=== PATIENT | female | born 1965 | race Caucasian/White ===

== ENCOUNTER 2016-11-17 13:00 | Inpatient (IN) | payer OTHER ==
--- NOTE | ~2016-11-17 | PA ---
Unit #: [id number] #: [id number] Patient: AUSTIN HOU [id number] [place] [address] [id number] MR#: [id number] NAME: AUSTIN HOU ROOM: P202 Age: 50 Sex: F Admission Date: 11/17/2016 : 1965 Date of Assessment: Attending Physician: Hemal Martin M.D. Admitting Physician: Hemal Martin M.D. PSYCHIATRIC ASSESSMENT INFORMANTS The patient's reliability, fair; chart reliability, good. CHIEF COMPLAINT Suicidal ideation. HISTORY OF PRESENT ILLNESS Ms. Cervantes is a 50-year-old female, admitted with polysubstance abuse, mood disorder. The patient has a history of multiple substance abuse. The patient has a long history of pain medication abuse, brought by due to inability to arouse her. The patient has a long history of abusing pain medication and other medication, increased in recent weeks. The patient was treated medically and subsequently transferred to [facility] for psychiatric stabilization. The patient's reported that he woke up this morning to find the patient standing in the bathroom in a stupor while the room flooded from the open running water. The patient was covered in feces which also been scattered around the entire wall, home. The patient's reported pills were scattered all over, . The patient's was concerned about the patient's behavior. reported no known history of any suicide attempt. The patient needed inpatient admission at this time for psychiatric stabilization. PAST PSYCHIATRIC HISTORY Unremarkable for any history of any previous treatment, but history of substance abuse as mentioned above. FAMILY HISTORY AND SOCIAL HISTORY The patient has a good support system. No history of any abuse. Family history unknown at this time. MEDICAL HISTORY Remarkable for history of hypothyroidism; history of kidney stone; history of interstitial cystitis; history of polysubstance abuse including Ambien, benzodiazepine, opiates; history of gastric bypass surgery; arthroscopic left knee surgery; bilateral inguinal hernia repair; left nephrectomy. MEDICATION HISTORY The patient is on Prozac 40 mg daily, Estrace, Protonix, Synthroid, Lamictal. ALLERGIES No known drug allergies. Unit #: [id number] #: [id number] Patient: AUSTIN HOU SUBSTANCE ABUSE HISTORY History of benzodiazepine abuse and pain medication abuse. REVIEW OF SYSTEMS HEENT: Eyes, clear. Ears, nose, mouth, and throat; clear. CARDIOVASCULAR: Unremarkable. RESPIRATORY: Unremarkable. GI: Unremarkable. : Unremarkable. SKIN: Unremarkable. LYMPH NODE: Unremarkable. NEUROLOGIC: Unremarkable. ENDOCRINE: Unremarkable. HEMATOLOGIC: Unremarkable. ALLERGIC/IMMUNOLOGIC: Unremarkable. MUSCULOSKELETAL: Muscle strength and tone, no atrophy or abnormal movement. Gait normal. MENTAL STATUS EXAMINATION CONSTITUTIONAL: Measurement of vital signs; temperature 98.8, pulse 93, respiratory rate 15, blood pressure 134/81. Height 5 feet 5 inches, weight 150 pounds. GENERAL APPEARANCE: The patient dressed casually. The patient did not show any facial deformity. MUSCULOSKELETAL: Please see above. PSYCHIATRIC EXAMINATION Description of speech; regular rate, normal volume, normal articulation, coherent. Description of thought process, goal directed. Description of association, intact. Description of abnormal psychotic thinking; the patient denied any hallucination, delusions, substance abuse, mood lability. Description of the patient's judgment; concerning everyday activity, poor. Social situation, poor. Concerning psychiatric condition, poor. Complete mental status examination; oriented in time, place, and person. Recent and remote memory, fair. Attention span and concentration, fair. Language, able to name object and repeat phrases. Fund of knowledge, aware of current event and passive vocabulary intact. Mood and affect, sad and dysphoric. Insight and judgment, fair to poor. ASSETS AND LIABILITIES Assets; the patient is articulate, able to take care of her ADL. Liability, history of substance abuse and depression. ADMITTING DIAGNOSES Psychiatric: Opiate use disorder, severe, F11.20; sedative hypnotic use disorder, severe, F13.20; major depressive disorder, recurrent, severe, F33.2. Secondary diagnosis: Deferred. Medical diagnosis: Please refer to H and P. Stressors: Psychosocial stressors. PSYCHIATRIC PLAN Unit #: [id number] #: [id number] Patient: AUSTIN HOU 1. Advised to admit the patient on the inpatient unit. Provide safe, supportive, and structured environment. 2. Ordered labs; CBC, CMP, UA, and UDS. 3. Precaution for aggression and self-harm. 4. The patient to continue only with Prozac, Estrace, Protonix, Synthroid, and Lamictal. Advised to stop all other medication, detox protocol and detox monitoring. The patient to attend all the programing on the inpatient unit, group therapy, individual therapy, and family session. TREATMENT GOAL To attain euthymic mood, gain insight into her problem, and learn coping skills. DISCHARGE PLAN Plan to stabilize the patient and consider followup in outpatient program. ESTIMATED LENGTH OF STAY 5 days. Dictated by... Carlos Manuel Sheffield/consuelo TD: 11/19/2016 23:23 JOB #: [id number] PSYCHIATRIC ASSESSMENT Page 1 of 1 X Hemal Martin MD X PSYCHIATRIC ASSESSMENT
--- NOTE | ~2016-11-17 | HP ---
Unit #: [id number] #: [id number] Patient: HELEN HOU [id number] [place] [address] [id number] MR#: [id number] NAME: HELEN HOU ROOM: P202 Age: 50 Sex: F Admission Date: 11/17/2016 : 1965 Attending Physician: Hemal Martin M.D. Admitting Physician: Hemal Martin M.D. Primary Care Physician: Primary Care Physician No HISTORY AND PHYSICAL HISTORY OF PRESENT ILLNESS Helen is a 50 year old admitted to [address] [place] [address] because of her polysubstance abuse which includes Ambien, benzodiazepines and opioids. 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 PAST MEDICAL HISTORY 1. Hypothyroidism. 2. History of kidney stones. 3. History of interstitial cystitis. 4. History of polysubstance abuse to include Ambien, benzodiazepines and opioids. PAST SURGICAL HISTORY 1. Gastric bypass. 2. Arthroscopic left knee. 3. Bilateral inguinal hernia repairs. 4. Left nephrectomy (per patient's report). ALLERGIES Compazine, Toradol, Reglan. SOCIAL HISTORY She denies cigarettes and alcohol. Denies abusing her prescribed medication. REVIEW OF SYSTEMS CONSTITUTIONAL: No fever or chills. HEENT: Denies any sore throat, ear pain or runny nose. CARDIOVASCULAR: Denies chest pain, irregular heart rhythm or palpitations. CHEST: Denies shortness of breath or cough. No hemoptysis. GASTROINTESTINAL: Denies nausea, vomiting, diarrhea or chronic constipation. ENDOCRINE: Denies history of increased thirst or urination. No recent significant weight loss or gain. GENITOURINARY: Denies dysuria, frequency, or hematuria. SKIN: Denies any rashes. HEMATOLOGIC: Denies history of increased bleeding or bruising. MUSCULOSKELETAL: Denies any hot, swollen joints. No generalized muscle pain. NEUROLOGIC: Denies problems with vision or speech. No frequent, severe headaches. No numbness, tingling or weakness in any extremities. Denies loss of bladder or bowel control. Unit #: [id number] #: [id number] Patient: HELEN HOU CURRENT MEDICATIONS 1. Detox protocol. 2. Nicotine patch 14 mg daily. 3. Prozac 40 mg daily. 4. Estrace 1 mg daily. 5. Protonix 40 mg daily. 6. Synthroid 0.2 mg daily. 7. Lamictal 100 mg t.i.d. PHYSICAL EXAMINATION GENERAL: Alert, well-nourished, in no apparent distress. VITAL SIGNS: Blood pressure 133/80, heart rate 90, respirations 16, temperature 98.6. WEIGHT: 150. HEIGHT: 5 feet 5 inches. SKIN: Warm and dry without rash or lesion. HEENT: Normocephalic. TMs not viewed. Oral and nasal passages clear. Conjunctivae clear. PERRLA. EOMs intact. NECK: Supple without lymphadenopathy or thyromegaly. HEART: Regular rate and rhythm without murmur. LUNGS: Clear. ABDOMEN: Soft, nontender. : Not done. EXTREMITIES: No evidence of cyanosis, clubbing or edema. Moves all without focal deficit. NEUROLOGICAL: Grossly within normal limits. Cranial Nerves: II: Visual herrera are intact. III, IV AND : Extraocular movements are intact. Pupils are equal, round and reactive to light. V: Facial sensation is grossly normal. VII: Facial movements and expression are normal. VIII: Auditory acuity grossly intact. IX, X: Uvula is midline. Phonation is normal. XI: Patient shrugs shoulders and turns head normally. XII: Tongue protrudes in the midline. Sensory and Motor Function: Sensory and motor sensation is grossly normal. Motor: moves all extremities well. Coordination: Gait is normal. Deep Tendon Reflexes: Intact. IMPRESSION Psychiatric admission. RECOMMENDATIONS PSYCHIATRIC: Per psychiatrist. MEDICAL: See no contraindications to participate in facility's activities. MEDICAL PROGNOSIS Good. MEDICAL CONDITION Stable. Dictated by... Rochelle Tse P.A.-C. for Carlos Manuel Lopez/[facility] Unit #: [id number] #: [id number] Patient: HELEN HOU TD: 11/18/2016 18:19 JOB #: [id number] HISTORY AND PHYSICAL Page 1 of 1 X Rochelle Tse HISTORY AND PHYSICAL
--- NOTE | ~2016-11-17 | CO ---
Unit #: [id number] #: [id number] Patient: AUSTIN HOU [id number] [place] [address] [id number] I MR#: [id number] NAME: AUSTIN HOU ROOM: P202 Age: 50 Sex: F Admission Date: 11/17/2016 : 1965 Attending Physician: Hemal Martin M.D. Primary Care Physician: Primary Care Physician No Consultation Date: 11/19/2016 CONSULTATION REPORT ORDERING PROVIDER Dr. Martin. REASON FOR CONSULTATION Management of pain. SUBJECTIVE The patient reports that she has left knee pain. She has been seeing Orthopedics and recently had surgery for torn meniscus approximately 1 month ago. She reports that she was using [place] at home to manage her pain, however, she is admitted for drugs and drug seeking behavior. She has been taking ibuprofen without relief. Her only allergy is to Reglan. OBJECTIVE The patient has full range of motion of her knee. There is no swelling or ecchymosis. There is tenderness to palpation at the base of the patella. ASSESSMENT Left knee pain. PLAN Plan is to change ibuprofen to Aleve. No narcotics at this time. Dictated by... Sophy Diaz A.P.R.N. for Carlos Manuel Lopez/consuelo TD: 11/20/2016 23:47 JOB #: [id number] CONSULTATION REPORT Page 1 of 1 X SOPHY DIAZ APRN X CONSULTATION REPORT
--- NOTE | ~2016-11-17 | PN ---
Unit #: [id number] #: [id number] Patient: AUSTIN HOU [id number] [facility] [address] [place] [address] [id number] I MR#: [id number] NAME: AUSTIN HOU ROOM: P202 Age: 50 Sex: F Admission Date: 11/17/2016 : 1965 Attending Physician: Hemal Martin M.D. Admitting Physician: Hemal Martin M.D. Primary Care Physician: Primary Care Physician Krystle VILLAREAL PROGRESS NOTES DATE 11/19/2016 DISCUSSION Ms. Cervantes is a 50-year-old female, seen on 11/19/2016. The patient is reporting pain. the patient reports that she has a bladder problem with history of knee surgery. Mood sad and dysphoric, flat affect, guarded. The patient was able to maintain safe behavior, denied any thoughts of harming self or others, able to eat her breakfast. Vital signs, 134/76, heart rate 96. REVIEW OF SYSTEMS Complete review of systems unremarkable. MENTAL STATUS EXAMINATION General appearance: Patient dressed casually. Attention span and concentration, fair. Oriented to place and person. Mood and affect, sad and dysphoric, flat. Speech, monotone. Thought process, concrete. The patient denied any thoughts of harming self or others. Recent and remote memory, poor. Insight and judgment, poor. DIAGNOSIS Polysubstance abuse, mood disorder, NOS. ASSESSMENT/PLAN Advised to continue with the current medication and therapeutic protocol, and if needed consider further adjustment of medication. Dictated by... Carlos Manuel Sheffield/breann TD: 11/21/2016 12:29 JOB #: [id number] Unit #: [id number] #: [id number] Patient: AUSTIN HOU CHARLYNOEL PROGRESS NOTES Page 1 of 1 X Hemal Martin MD PROGRESS NOTE
--- NOTE | ~2016-11-17 | PN ---
Unit #: [id number] #: [id number] Patient: AUSTIN HOU [id number] [facility] [address] [place] [address] [id number] I MR#: [id number] NAME: AUSTIN HOU ROOM: P202 Age: 50 Sex: F Admission Date: 11/17/2016 : 1965 Attending Physician: Hemal Martin M.D. Admitting Physician: Hemal Martin M.D. Primary Care Physician: Primary Care Physician Krystle DE PAZ NOTES DATE 11/20/2016 DISCUSSION Ms. Cervantes is a 50-year-old female, seen on 11/20/2016. The patient interviewed, chart reviewed, and obtained information from the nursing staff. The patient was compliant and cooperative. Mood sad and dysphoric, but able to maintain safe behavior, denied any thoughts of harming self or others, compliant with medication, no side effects from medication. REVIEW OF SYSTEMS Complete review of systems unremarkable. MENTAL STATUS EXAMINATION General appearance: Patient dressed casually. Attention span and concentration, fair. Oriented in place and person. Mood and affect, sad and dysphoric. Speech, monotone. Thought process, concrete. The patient denied any thoughts of harming self or others. Recent and remote memory, poor. Insight and judgment, poor. DIAGNOSIS Mood disorder, NOS. ASSESSMENT/PLAN Advised to continue with the current medication and therapeutic protocol, and if needed consider further adjustment of medication. Dictated by... Carlos Manuel Sheffield/breann TD: 11/22/2016 08:24 JOB #: [id number] Unit #: [id number] #: [id number] Patient: AUSTIN HOU DIONNA PROGRESS NOTES Page 1 of 1 X Hemal Martin MD PROGRESS NOTE
--- NOTE | ~2016-11-17 | PN ---
Unit #: [id number] #: [id number] Patient: AUSTIN HOU [id number] [facility] [address] [place] [address] [id number] I MR#: [id number] NAME: AUSTIN HOU ROOM: P202 Age: 50 Sex: F Admission Date: 11/17/2016 : 1965 Attending Physician: Hemal Martin M.D. Admitting Physician: Hemal Martin M.D. Primary Care Physician: Primary Care Physician Krystle VILLAREAL PROGRESS NOTES DATE 11/18/2016 DISCUSSION Ms. Cervantes is a 50-year-old female seen on 11/18/2016. The patient interviewed, chart reviewed. Obtained information from nursing staff. The patient compliant and cooperative. Mood sad, dysphoric, flat affect, withdrawn, isolative, guarded. The patient did not show any aggressive behavior. Complete review of systems unremarkable. MENTAL STATUS EXAMINATION General appearance, the patient dressed casually. Attention span and concentration fair. Oriented to place and person. Mood and affect sad, depressed. Speech monotone. Thought process concrete. The patient denied any thoughts of harming self or others. Recent and remote memory poor. Insight and judgement poor. DIAGNOSES Benzodiazepine abuse, opioid abuse moderate, mood disorder NOS. ASSESSMENT/PLAN Advise to continue with current medication and therapeutic protocol. If needed consider further adjustment of medication. Dictated by... Carlos Manuel Sheffield/nydia TD: 11/21/2016 05:48 JOB #: [id number] Unit #: [id number] #: [id number] Patient: AUSTIN HOU CHARLYNOEL PROGRESS NOTES Page 1 of 1 X Hemal Martin MD PROGRESS NOTE
--- NOTE | ~2016-11-17 | DS ---
Unit #: [id number] #: [id number] Patient: AUSTIN HOU [id number] [facility] [address] [place] [address] [id number] I MR#: [id number] NAME: AUSTIN HOU ROOM: [facility] Age: 50 Sex: F Admission Date: 11/17/2016 : 1965 Discharge Date: 11/21/2016 Attending Physician: Hemal Martin M.D. Primary Care Physician: Primary Care Physician No DISCHARGE SUMMARY REASON FOR ADMISSION Suicidal ideation. DIAGNOSTIC STUDIES LABORATORY RESULTS: None. HOSPITAL COURSE The patient was admitted to inpatient unit on 11/17/2016 and discharged on 11/21/2016. The patient was treated on the inpatient unit with expressive therapy, medication management, psychoeducation, and structured milieu. The patient responded well with the above modalities of treatment. Subsequently, the patient was discharged with a plan to follow up in outpatient program. DISCHARGE MEDICATIONS None. DISCHARGE DIAGNOSES Psychiatric: Opioid use disorder, severe, F11.20; sedative hypnotic use disorder, severe, F13.20; mood disorder, not otherwise specified, F32.9. Secondary diagnosis: Deferred. Medical diagnosis: Please refer to H and P. Stressors: Psychosocial stressor. DISCHARGE INSTRUCTIONS The patient to follow up in outpatient clinic as per community mental health social worker. CONDITION ON DISCHARGE The patient was pleasant and cooperative. Denied any psychotic symptom or any suicidal ideation. PROGNOSIS Guarded. DIET AND ACTIVITY As tolerated. Dictated by... Hemal Martin M.D. Unit #: [id number] #: [id number] Patient: AUSTIN HOU ZORAC/modl TD: 11/22/2016 05:21 JOB #: [id number] DISCHARGE SUMMARY Page 1 of 1 X Hemal Martin MD X DISCHARGE SUMMARY
[2016-11-19 11:22] LABS: URINE APPEARANCE CLOUDY; URINE BILIRUBIN NEG (NEG); URINE BLOOD TRACE (NEG); URINE COLOR YELLOW; URINE GLUCOSE NEG (NEG); URINE KETONE NEG (NEG); URINE LEUKOCYTE ESTERASE 2+ (NEG); URINE NITRATE NEG (NEG); URINE PH 5.5 (5-8); URINE PROTEIN NEG (NEG); URINE SPECIFIC GRAVITY 1.019 (1.003-1.035); URINE UROBILINOGEN 0.2 MG/DL (NEG)
[2016-11-19 11:25] LABS: URINE BACTERIA AUWI 1+ (NEGATIVE); URINE SQUAMOUS EPITHELIAL CELL MOD /[HPF]; UWBCS1 AUWI 100-200 (0-5)
[2016-11-19 11:44] LABS: URINE YEAST PRESENT
[2016-11-19 11:54] LABS: AMPHETAMINE NEG (NEG); BARBITURATES NEG (NEG); BENZODIAZEPINES POS (NEG); COCAINE NEG (NEG); MARIJUANA NEG (NEG); OPIATES NEG (NEG); TRICYCLIC ANTIDEPRESSANTS POS (NEG); U METHADONE NEG (NEG)
== END 2016-11-21 10:30 | disposition home or self-care (01) | DRG 897 ==
LOC: P2S 19:48
PROVIDERS: Psychiatry & Neurology Psychiatry
PROC: HZ2ZZZZ Detoxification Services for Substance Abuse Treatment (ICD-10-PCS; principal; 2016-11-17)
DX: F11.20 Opioid dependence, uncomplicated (principal); R45.851 Suicidal ideations; F33.2 Major depressive disorder, recurrent severe without psychotic features; F13.20 Sedative, hypnotic or anxiolytic dependence, uncomplicated; Z87.442 Personal history of urinary calculi; Z98.84 Bariatric surgery status; Z90.5 Acquired absence of kidney; E03.9 Hypothyroidism, unspecified; Z88.8 Allergy status to other drugs, medicaments and biological substances; F39 Unspecified mood [affective] disorder; M25.562 Pain in left knee
CPT/HCPCS: 80307; 81003